=== PATIENT | female | born 1975 | race Caucasian/White ===

== ENCOUNTER 2018-05-04 09:26 | Emergency (ER) | payer OTHER ==
[~2018-05-04] VITALS: Ht 167.6 cm; Wt 65.8 kg
== END 2018-05-04 13:46 | disposition home or self-care (01) ==
LOC: ER 09:26
DX: S50.12XA Contusion of left forearm, initial encounter (principal); W18.39XA Other fall on same level, initial encounter; Y93.89 Activity, other specified; Y92.89 Other specified places as the place of occurrence of the external cause; Y99.8 Other external cause status

== ENCOUNTER 2018-07-21 10:35 | Outpatient (CLI) | payer OTHER | END 2018-07-21 10:58 | disposition home or self-care (01) | LOC: RAD 10:35 | DX: M48.06 Spinal stenosis, lumbar region (principal) ==